=== PATIENT | male | born 1955 | race Caucasian/White ===

== ENCOUNTER → 2016-09-10 | Outpatient (CLI) | payer OTHER ==
[~2016-09-10] MED LIST: COLACE-DPS100 MG PO; LASIX DPS20 MG PO; MOTRIN-DPS800 MG PO; PERCOCET 5-3251 EACH PO; POLYSPORIN OINT15 GM TP; PROVENTIL HFA6.7 GM IH; THERA1 EACH PO; TYLENOL DPS325 MG PO; VALIUM5 MG PO; ZESTRIL DPS40 MG PO
== END | disposition home or self-care (01) ==
LOC: PTH.S 09-06 07:30
DX: J44.9 Chronic obstructive pulmonary disease, unspecified (principal); N19 Unspecified kidney failure

== ENCOUNTER 2016-09-20 14:14 | Emergency (ER) | payer SELFPAY ==
--- NOTE | 2016-09-25 15:34 | ER ---
ADMIT: 09/20/2016 RM/LOC: ER [facility] MR#: [id number] [address] [address] MAURIZIO ANDERS W [address] [place] [address] Emergency Room Report SEX: M AGE: 61 : 1955 DATE: 09/20/2016 HISTORY OF PRESENT ILLNESS: The patient states that he sneezed and now he has back pain. He has had chronic issues with sciatica, has received chronic steroid shots in his back, he said the last one was 6 weeks ago and did not touch him. He does not have any problems with incontinence. He just simply says he feels like an electrical current going down both buttocks, down into his toe bilaterally. PHYSICAL EXAMINATION: VITAL SIGNS: Within normal limits. GENERAL: He seems to be in distress. He was given a shot of Nubain after the physical examination. For physical examination, please see T-sheet. Prescribed prednisone for home use and physical therapy prescription, to follow up. CLINICAL IMPRESSION: 1. Sciatica. 2. Low back pain. Discharge. BRIANA Ocasio / Declan Bejarano MD / payam JOB #: [id number] CC: Declan Bejarano MD, Attending Physician Clark Smart MD, Family Physician
[2017-01-17] MEDS ORDERED: ZESTRIL DPS40 MG PO (20:19)
[2017-01-17] MEDS ORDERED: MOTRIN-DPS800 MG PO (20:20)
[2017-01-17] MEDS ORDERED: PROVENTIL HFA6.7 GM IH (20:20)
[2017-01-17] MEDS ORDERED: THERA1 EACH PO (20:20)
[2017-01-17] MEDS ORDERED: LASIX DPS20 MG PO (20:20)
[2017-01-17] MEDS ORDERED: COLACE-DPS100 MG PO (20:21)
[2017-01-17] MEDS ORDERED: POLYSPORIN OINT15 GM TP (20:21)
[2017-01-17] MEDS ORDERED: TYLENOL DPS325 MG PO (20:21)
[2017-01-17] MEDS ORDERED: VALIUM5 MG PO (20:22)
[2017-01-17] MEDS ORDERED: PERCOCET 5-3251 EACH PO (20:22)
== END 2016-09-20 18:53 | disposition home or self-care (01) ==
LOC: ER 14:14
DX: M54.42 Lumbago with sciatica, left side (principal); M54.41 Lumbago with sciatica, right side; I10 Essential (primary) hypertension; Z79.899 Other long term (current) drug therapy

== ENCOUNTER → 2016-09-27 | Outpatient (CLI) | payer OTHER | END | disposition home or self-care (01) | LOC: PTH.S 09-11 10:45 | DX: D72.829 Elevated white blood cell count, unspecified (principal) ==

== ENCOUNTER 2016-11-01 13:11 | Emergency (ER) | payer SELFPAY ==
--- NOTE | 2016-11-09 17:48 | ER ---
ADMIT: 11/01/2016 RM/LOC: ER [facility] MR#: [id number] [address] [facility] [address] MAURIZIO ANDERS W [address] [place] [address] Emergency Room Report SEX: M AGE: 61 : 1955 DATE: 11/01/2016 ADDENDUM: This 61-year-old white male coming in with recurrent chronic back pain radiating down his legs. X-ray did not really show too much. I gave him 60 Toradol IM, 20 of Decadron IM, put him on tramadol 50 mg 1 to 2 p.o. q.6 p.r.n. pain #30. I gave him city call. He is also going to go through [facility]. Also put him on prednisone 20 b.i.d., start that tomorrow, that will be for 5 days. Follow up then as directed. Declan Bejarano MD/ payam JOB #: [id number] CC: Declan Bejarano MD, Attending Physician Wayne Winston DO, Family Physician
[2017-01-17] MEDS ORDERED: ZESTRIL DPS40 MG PO (20:19)
[2017-01-17] MEDS ORDERED: LASIX DPS20 MG PO (20:20)
[2017-01-17] MEDS ORDERED: THERA1 EACH PO (20:20)
[2017-01-17] MEDS ORDERED: MOTRIN-DPS800 MG PO (20:20)
[2017-01-17] MEDS ORDERED: PROVENTIL HFA6.7 GM IH (20:20)
[2017-01-17] MEDS ORDERED: POLYSPORIN OINT15 GM TP (20:21)
[2017-01-17] MEDS ORDERED: TYLENOL DPS325 MG PO (20:21)
[2017-01-17] MEDS ORDERED: COLACE-DPS100 MG PO (20:21)
[2017-01-17] MEDS ORDERED: PERCOCET 5-3251 EACH PO (20:22)
[2017-01-17] MEDS ORDERED: VALIUM5 MG PO (20:22)
== END 2016-11-01 15:35 | disposition home or self-care (01) ==
LOC: ER 13:11
DX: M54.16 Radiculopathy, lumbar region (principal); G89.29 Other chronic pain; I10 Essential (primary) hypertension; J45.909 Unspecified asthma, uncomplicated; F17.210 Nicotine dependence, cigarettes, uncomplicated; Z79.899 Other long term (current) drug therapy

== ENCOUNTER 2016-11-07 11:31 | Emergency (ER) | payer SELFPAY ==
--- NOTE | 2016-11-08 08:10 | ER ---
ADMIT: 11/07/2016 RM/LOC: ER [facility] MR#: [id number] [id number] [place], [place] [address] MAURIZIO ANDERS [address] [place] [address] Emergency Room Report SEX: M AGE: 61 : 1955 DATE: 11/07/2016 ADDENDUM: See T-sheet for complete H and P. A 61-year-old male with history of chronic back pain and sciatica comes in with worsening back pain. He was seen here about a week ago and was placed on a prednisone taper at that time. Reports, he believe the steroid did help but as he got closer to the taper now off it his symptoms have got worse again. He has been seen by Dr. Singleton at [facility] and is set up to get a MRI done next week of his lumbar spine. He states he is primarily having pain but no new weakness. He does have some baseline paresthesias and numbness, but again that is not new for him. He has no loss of bowel or bladder function. On examination, he does have some paresthesias in bilateral lower extremities, but I cannot elucidate any weakness. He was given a shot of Toradol in the emergency department and is sent home on Ultram and another prednisone taper to follow up next week with his MRI in [facility]. DIAGNOSES: 1. Acute on chronic back pain. 2. Sciatica. Fabian Nguyen MD/ payam JOB #: [id number] CC: Fabian Nguyen MD, Attending Physician
[2017-01-17] MEDS ORDERED: ZESTRIL DPS40 MG PO (20:19)
[2017-01-17] MEDS ORDERED: PROVENTIL HFA6.7 GM IH (20:20)
[2017-01-17] MEDS ORDERED: THERA1 EACH PO (20:20)
[2017-01-17] MEDS ORDERED: LASIX DPS20 MG PO (20:20)
[2017-01-17] MEDS ORDERED: MOTRIN-DPS800 MG PO (20:20)
[2017-01-17] MEDS ORDERED: POLYSPORIN OINT15 GM TP (20:21)
[2017-01-17] MEDS ORDERED: COLACE-DPS100 MG PO (20:21)
[2017-01-17] MEDS ORDERED: TYLENOL DPS325 MG PO (20:21)
[2017-01-17] MEDS ORDERED: VALIUM5 MG PO (20:22)
[2017-01-17] MEDS ORDERED: PERCOCET 5-3251 EACH PO (20:22)
== END 2016-11-07 13:27 | disposition home or self-care (01) ==
LOC: ER 11:31
DX: G89.29 Other chronic pain (principal); M54.42 Lumbago with sciatica, left side; M54.41 Lumbago with sciatica, right side; I10 Essential (primary) hypertension; Z79.899 Other long term (current) drug therapy

== ENCOUNTER → 2016-11-11 | Outpatient (CLI) | payer SELFPAY | END | disposition home or self-care (01) | LOC: RAD.S 13:00 | DX: M54.5 Low back pain (principal); M51.26 Other intervertebral disc displacement, lumbar region; M47.816 Spondylosis without myelopathy or radiculopathy, lumbar region; M48.06 Spinal stenosis, lumbar region; M48.54XA Collapsed vertebra, not elsewhere classified, thoracic region, initial encounter for fracture ==

== ENCOUNTER 2016-11-13 11:33 | Emergency (ER) | payer SELFPAY ==
--- NOTE | 2016-11-13 15:22 | NUR ---
Received referral from ED. Attempted to contact pt. This is a message phone. Left message for pt to call [facility] back.
--- NOTE | 2016-11-14 13:51 | NUR ---
Attempted to contact patient. No answer, voice mail message left.
--- NOTE | 2016-11-15 02:34 | ER ---
ADMIT: 11/13/2016 RM/LOC: ER [facility] MR#: [id number] [address] [address] MAURIZIO ANDERS W [address] [place] [address] Emergency Room Report SEX: M AGE: 61 : 1955 DATE: 11/13/2016 TIME: 11:33. Please refer to my T-sheet for complete H and P. HISTORY OF PRESENT ILLNESS: Briefly, the patient is a 61-year-old, who comes in with low back pain. The back pain has been there for a long time, but he felt from two weeks it has been hurting worse, so he had an MRI done. He rates it 8/10. He says he is out of his pain medications. PHYSICAL EXAMINATION: VITAL SIGNS: Stable. BACK: He has diffuse tenderness which goes down his legs. No neurological findings. EMERGENCY DEPARTMENT COURSE: I reviewed his MRI. He did have significant degenerative changes with some significant stenosis and herniation at L3-L4 involvement of the roots. I gave him 2 [place] 5 p.o., one Flexeril, he is ready for discharge. ASSESSMENT: 1. Acute lumbar pain. 2. Lumbar disc disease. PLAN: Continue to follow up with [facility]. Return if worse. I gave him a script for [place] and Flexeril. Thee Mckeon MD/ yarelil JOB #: [id number] CC: Thee Mckeon MD, Attending Physician Danny Singleton MD, Family Physician
[2017-01-17] MEDS ORDERED: ZESTRIL DPS40 MG PO (20:19)
[2017-01-17] MEDS ORDERED: PROVENTIL HFA6.7 GM IH (20:20)
[2017-01-17] MEDS ORDERED: MOTRIN-DPS800 MG PO (20:20)
[2017-01-17] MEDS ORDERED: LASIX DPS20 MG PO (20:20)
[2017-01-17] MEDS ORDERED: THERA1 EACH PO (20:20)
[2017-01-17] MEDS ORDERED: POLYSPORIN OINT15 GM TP (20:21)
[2017-01-17] MEDS ORDERED: COLACE-DPS100 MG PO (20:21)
[2017-01-17] MEDS ORDERED: TYLENOL DPS325 MG PO (20:21)
[2017-01-17] MEDS ORDERED: PERCOCET 5-3251 EACH PO (20:22)
[2017-01-17] MEDS ORDERED: VALIUM5 MG PO (20:22)
== END 2016-11-13 12:27 | disposition home or self-care (01) ==
LOC: ER 11:33
DX: M51.9 Unspecified thoracic, thoracolumbar and lumbosacral intervertebral disc disorder (principal); I10 Essential (primary) hypertension; F17.210 Nicotine dependence, cigarettes, uncomplicated

== ENCOUNTER 2016-11-25 10:00 | Emergency (ER) | payer SELFPAY ==
--- NOTE | 2016-11-26 10:18 | NUR ---
Pt triggered as a high ED user. Attempted to contact pt. Pt proceeded to hang up the telephone.
--- NOTE | 2016-11-28 16:42 | ER ---
ADMIT: 11/25/2016 RM/LOC: ER [facility] MR#: [id number] [id number] [place], [place] [address] MAURIZIO ANDERS [address] [place] [address] Emergency Room Report SEX: M AGE: 61 : 1955 CORRECTED: 11/26/2016 0647 NJV DATE: 11/25/2016 CHIEF COMPLAINT: Chronic back pain continues in the ED. He says he is out of his narcotics that were given to him in the emergency room. His primary provider is the [facility], set him up through Dr. Singleton for followup with [facility]. He was given steroids when he was in the emergency room and now wants pain medications, has a bottle of Henderson on the desk. REVIEW OF SYSTEMS: Negative. PAST MEDICAL HISTORY: Hypertension and COPD. He is a chronic smoker, half-a- pack a day. PAST SURGICAL HISTORY: He had hand surgery, carpal tunnel, hernia repair. MEDICATIONS: Takes lisinopril for his blood pressure. PHYSICAL EXAMINATION: VITAL SIGNS: His blood pressure 173/91, heart rate 67 respirations 12, temp is 97.3, and O2 sats 98%. GENERAL: Mildly anxious. Ambulates with the help of a cane. MUSCULOSKELETAL: Tenderness in the lumbar area, left than the right. Some muscle spasms present. Sensitivity is very tense and hypersensitive to touch. EXTREMITIES: Well perfused. I indicated to him that he needs to get a refill from his primary provider as he needs to follow up with them. We do not do refills in the emergency room. Once I told him I was not going to refill the Henderson, then he proceeded to ask if I could give him Ultram. I advised that we give him ketorolac, and he needs to follow up with his primary provider. This is a chronic situation. I am not going to give him any narcotics in the ER. The patient verbalized understanding, was released with instructions. BRIANA Ocasio / Declan Bejarano MD / payam JOB #: [id number] CC: Declan Bejarano MD, Attending Physician Salvador Ross MD, Family Physician CORRECTED: 11/26/2016 0647 NJV
[2017-01-17] MEDS ORDERED: ZESTRIL DPS40 MG PO (20:19)
[2017-01-17] MEDS ORDERED: PROVENTIL HFA6.7 GM IH (20:20)
[2017-01-17] MEDS ORDERED: THERA1 EACH PO (20:20)
[2017-01-17] MEDS ORDERED: MOTRIN-DPS800 MG PO (20:20)
[2017-01-17] MEDS ORDERED: LASIX DPS20 MG PO (20:20)
[2017-01-17] MEDS ORDERED: POLYSPORIN OINT15 GM TP (20:21)
[2017-01-17] MEDS ORDERED: TYLENOL DPS325 MG PO (20:21)
[2017-01-17] MEDS ORDERED: COLACE-DPS100 MG PO (20:21)
[2017-01-17] MEDS ORDERED: PERCOCET 5-3251 EACH PO (20:22)
[2017-01-17] MEDS ORDERED: VALIUM5 MG PO (20:22)
== END 2016-11-25 10:50 | disposition home or self-care (01) ==
LOC: ER 10:00
DX: M54.5 Low back pain (principal); G89.29 Other chronic pain; I10 Essential (primary) hypertension; F17.210 Nicotine dependence, cigarettes, uncomplicated; J44.9 Chronic obstructive pulmonary disease, unspecified; Z98.890 Other specified postprocedural states; Z79.899 Other long term (current) drug therapy

== ENCOUNTER 2016-11-29 12:43 | Emergency (ER) | payer OTHER ==
--- NOTE | 2016-12-06 18:56 | ER ---
ADMIT: 11/29/2016 RM/LOC: ER [facility] MR#: [id number] [address] [address] MAURIZIO ANDERS W [address] [place] [address] Emergency Room Report SEX: M AGE: 61 : 1955 DATE: 11/29/2016 ADDENDUM: CHIEF COMPLAINT: Back pain. HISTORY OF PRESENT ILLNESS: This is a 61-year-old male, who has had chronic back pain for about 2 years. He did recently have an MRI and has a followup appointment with Dr. Gordon Ross, but not until January. He also has an appointment with [facility], but it is not until December 12. He comes here just requesting something for pain. He said that he has difficult time even walking, getting around, doing his daily activities. I am sending him home with Cognii, dispensing 20 of them for pain. Told him to follow up with his primary care physician if worsen. BRIANA Morales / Declan Bejarano MD / modl JOB #: [id number] CC: Declan Bejarano MD, Attending Physician Jax Santoyo MD, Family Physician
[2017-01-17] MEDS ORDERED: ZESTRIL DPS40 MG PO (20:19)
[2017-01-17] MEDS ORDERED: THERA1 EACH PO (20:20)
[2017-01-17] MEDS ORDERED: MOTRIN-DPS800 MG PO (20:20)
[2017-01-17] MEDS ORDERED: LASIX DPS20 MG PO (20:20)
[2017-01-17] MEDS ORDERED: PROVENTIL HFA6.7 GM IH (20:20)
[2017-01-17] MEDS ORDERED: POLYSPORIN OINT15 GM TP (20:21)
[2017-01-17] MEDS ORDERED: TYLENOL DPS325 MG PO (20:21)
[2017-01-17] MEDS ORDERED: COLACE-DPS100 MG PO (20:21)
[2017-01-17] MEDS ORDERED: PERCOCET 5-3251 EACH PO (20:22)
[2017-01-17] MEDS ORDERED: VALIUM5 MG PO (20:22)
== END 2016-11-29 14:25 | disposition home or self-care (01) ==
LOC: ER 12:43
DX: M54.5 Low back pain (principal); G89.29 Other chronic pain; I10 Essential (primary) hypertension; J44.9 Chronic obstructive pulmonary disease, unspecified; F17.210 Nicotine dependence, cigarettes, uncomplicated; Z88.6 Allergy status to analgesic agent; Z79.899 Other long term (current) drug therapy